=== PATIENT | male | born 1955 | race Caucasian/White ===

== ENCOUNTER 2017-01-15 17:58 | Emergency (ER) | payer OTHER ==
[~2017-01-15] VITALS: Ht 182.9 cm; Wt 122.7 kg
[2017-01-15 17:58] VITALS: BP 215/102
[2017-01-15] MEDS ORDERED: METF500T13 PO (18:28)
[2017-01-15] MEDS ORDERED: DOXYCYCLINE HYCLATE 100 MG TAB PO ONE (22:00)
== END 2017-01-15 22:31 | disposition home or self-care (01) ==
LOC: M ED 17:58
DX: S70.362A Insect bite (nonvenomous), left thigh, initial encounter (principal); Z72.0 Tobacco use; W57.XXXA Bitten or stung by nonvenomous insect and other nonvenomous arthropods, initial encounter; Y92.89 Other specified places as the place of occurrence of the external cause; Y93.89 Activity, other specified; Y99.9 Unspecified external cause status